=== PATIENT | female | born 1980 | race Caucasian/White ===

== ENCOUNTER 2025-08-05 17:29 | Emergency (ER) | payer OTHER, SELFPAY ==
[2025-08-05 17:36] VITALS: BP 125/93
[2025-08-05 18:05] LABS: Hematocrit 49.7 % (37.0-47.0); Hemoglobin 17.0 g/dL (12.0-16.0); Mean Corp Hgb Conc. 34.2 g/dL (33.0-37.0); Mean Corpuscular Volume 79.5 fL (81.0-99.0); Nucleated Red Blood Cells % 0 %; Platelet Count 251 10^3/uL (130-400); Red Cell Dist. Width 13.5 % (11.5-14.5)
[2025-08-05 18:16] LABS: ALT (SGPT) 32 U/L (0-35); AST (SGOT) 26 U/L (14-36); Albumin 5.4 g/dl (3.5-5.0); Alkaline Phosphatase 82 U/L (38-126); Blood Urea Nitrogen 22 mg/dl (7-17); Calcium 10.3 mg/dl (8.4-10.2); Carbon Dioxide 25 mmol/L (22-30); Chloride 96 mmol/L (98-107); Glucose 115 mg/dl (70-99); Potassium 4.4 mmol/L (3.5-5.1); Sodium 137 mmol/L (135-145); Total Protein 8.6 g/dl (6.3-8.2); eGFR > 60.00
--- NOTE | 2025-08-05 19:52 | ED.GENMED ---
History of Present Illness
General
Chief Complaint: Abdominal Pain
Source: patient
Time Seen by Provider: 08/05/25 19:37
History of Present Illness
History of Present Illness:
44-year-old female with past medical history of type 2 diabetes, recently started on Mounjaro in April, increased her dose of the Mounjaro 2 days ago presenting to the ER for persistent nausea and vomiting since increasing the medication, notes that
she will normally have nausea following an increased dose however it normally subsides after 1 day, now unable to tolerate p.o. She does note some mild generalized abdominal discomfort described to be more of a cramping sensation. She denies any
bowel changes or urinary symptoms. She attempted Zofran at home with no relief. Denies fevers. Last menstrual period at the end of June, she is not concerned for .
Past History
Past History
ED Past Medical History: NIDDM
ED Past Surgical History: , Orthopedic and Other
Social History
Tobacco: Non-smoker
Alcohol: Occasional
Drug: None
Personal:
Living: with family
Review of Systems
Review of Systems
All Other Systems: ROS reviewed and negative except as documented in HPI and ROS
Phy Exam
Physical Exam
Physical Exam:
GENERAL: Alert , in no apparent distress
EYE: clear conjunctiva b/l
HEAD: NCAT
ENT: o/p clr, mmm.
CARDIAC: Tachycardic rate, regular rhythm
LUNGS: Clear breath sounds bilaterally, no acute respiratory distress, no wheezes/rales/rhonchi
ABDOMEN: Soft, generally tender but nonfocal, no r/g, no cvat
NEUROLOGICAL: Alert and oriented
SKIN: Warm and dry, skin intact.
MUSCULOSKELETAL: No edema, well perfused.
PSYCH: Normal and appropriate interaction.
Scores
Heart Failure Risk
Heart Failure Risk Score: Not Applicable
Heart Score for Chest Pain Patients
STEMI patient?: Not applicable
Withdrawal Assessment of Alcohol
Withdrawal Assessment Completed?: Not applicable
Course
Orders/Labs/Results
Orders:
Orders
08/05/25 17:45
CMP [Comprehensive Metabolic Panel] Urgent
Complete Blood Count/With Diff Urgent
HCG, Serum Qualitative Screen Urgent
Comment: ADDON
Lipase Urgent
Comment: ADDON
08/05/25 19:44
Add On- LAB Urgent
Tests Added?: lipase
0.9% Sodium Chloride 1000 ml [Nss] 1,000 ml IV BOLUS
Ondansetron Injectable [Zofran] 4 mg IV NOW STA
CR Abdomen - 1 View Urgent
Comment:
Reason For Exam: nausea/vomiting, recent increased dose GLP-1
08/05/25 19:55
Add On- LAB Urgent
Tests Added?: HCG qual
08/05/25 21:24
0.9% Sodium Chloride 500 ml [Nss] 500 ml IV BOLUS
Ketorolac [Toradol] 30 mg IV NOW STA
Abnormal Lab Results
08/05/25
17:45
WBC 13.1 H 10^3/uL
(4.8-10.8)
RBC 6.25 H 10^6/uL
(4.20-5.40)
Hgb 17.0 H g/dL
(12.0-16.0)
Hct 49.7 H %
(37.0-47.0)
MCV 79.5 L fL
(81.0-99.0)
MPV 10.6 H fL
(7.4-10.4)
Absolute Neuts (auto) 8.2 H 10^3/uL
(1.4-6.5)
Absolute Lymphs (auto) 3.7 H 10^3/uL
(1.2-3.4)
Absolute Monos (auto) 1.0 H 10^3/uL
(0.1-0.6)
Chloride 96 L mmol/L
(98-107)
BUN 22 H mg/dl
(7-17)
Glucose 115 H mg/dl
(70-99)
Calcium 10.3 H mg/dl
(8.4-10.2)
Total Protein 8.6 H g/dl
(6.3-8.2)
Albumin 5.4 H g/dl
(3.5-5.0)
08/05/25 17:45
08/05/25 17:45
Vital Signs
Initial and Last Documented VS:
Initial Vital Signs
Temp Pulse Pulse Ox
98.0 F 120 96
08/05/25 17:33 08/05/25 17:33 08/05/25 17:33
Last Documented Vital Signs
Temp Pulse Resp BP Pulse Ox
98.0 F 94 18 119/80 97
08/05/25 17:33 08/05/25 20:09 08/05/25 20:09 08/05/25 20:09 08/05/25 20:09
MDM/Problems Addressed
Differential Diagnosis Includes:
Medication induced side effect
Pancreatitis
GERD
Gastritis
Cholecystitis
Appendicitis
Dehydration
Electrolyte imbalance
MDM/Problems Addressed:
44-year-old female presenting to the ER for evaluation of persistent nausea and vomiting in the setting of recently increasing her Mounjaro medication. I suspect her symptoms are most likely related to medication side effect but given the mild
discomfort pancreatitis is a consideration. Labs were initiated in triage which do show a leukocytosis, hemoglobin elevated at 17 which is likely due to hemoconcentration from volume depletion. Electrolytes otherwise unremarkable. I did have to
add on a lipase and hCG to the workup. IV fluids, Zofran ordered. Abdominal x-ray ordered to rule out any potential obstruction
*Radiology
Radiology exam reviewed: preliminary read by ED provider (No obstructive bowel gas pattern)
*Pulse Oximetry
SaO2: 96
Oxygen Mode of Delivery: Room air
Patient hypoxic: no
*Critical Care Note
Total Time (30-74mins, 75-104mins- exclusive of procedures): Not Applicable
Patient Management
Escalation/DeEscalation of care consider admission/obs:
On reevaluation patient did note improved nausea and was able to tolerate ice chips however was requesting something now for pain/cramping. 30 mg of Toradol and an additional 1 L of normal saline ordered. Following the Toradol and additional
fluids patient felt much better and was requesting to be discharged home. Advised on BRAT diet. Stable for discharge home.
ED Attending Note
-
Portions of this chart may have been created with voice recognition software.� Occasional wrong word or��sound alike� substitutions may have occurred due to the inherent limitations of voice recognition software.
Discharge Plan
Departure
Patient Disposition: Home (Routine Discharge)
Date of Disposition: 08/05/25
Time of Disposition: 22:52
Patient with high blood pressure during this ER visit?: No
Discharge Problem:
Nausea and vomiting
Instructions: Nausea and Vomiting, Adult (DC)
Prescriptions:
No Action
cephalexin 500 MG capsule
500 mg PO BID Qty: 14 0RF
Referrals:
Belem Seay MD [Family Provider]
Interventions
Interventions:
*Risk Screen - Suicide Last Done: 08/05/25 20:09
*General Assessment Last Done: 08/05/25 17:33
*Neglect/Abuse Screening Last Done: 08/05/25 20:09
*Nursing Disposition Last Done: 08/05/25 23:07
[facility]-Emjfgkzzla Assessment Last Done: 08/05/25 20:09
Discharge Date and Time
Discharge Date/Time: 08/05/25 23:08
Print Language: LITHUANIAN
[2025-08-05] MEDS: ZOFRAN 4 MG IV (20:05)
[2025-08-05] MEDS: NSS 1000 IV (20:05)
[2025-08-05 20:08] VITALS: BMI 27.1
[2025-08-05 20:09] VITALS: BP 119/80
[2025-08-05 21:28] LABS: HCG, Serum Qualitative Screen Negative
[2025-08-05 21:29] LABS: Lipase 75 U/L (23-300)
[2025-08-05] MEDS: TORADOL 30 MG IV (21:41)
[2025-08-05] MEDS: NSS 500 IV (21:42)
== END 2025-08-05 23:08 | disposition home or self-care (01) ==
LOC: EMR 17:29
PROVIDERS: Emergency Medicine; EMERGENCY PHYSICIAN Emergency Medicine; FAMILY PHYSICIAN Family Medicine
DX: R11.2 Nausea with vomiting, unspecified (principal); R10.84 Generalized abdominal pain; E11.9 Type 2 diabetes mellitus without complications
CPT/HCPCS: 99284; 96374; 96375; 96361 ×2; 74018; 80053; 83690; 84703; 85025

== ENCOUNTER 2025-08-07 13:52 | Inpatient (IN) | payer OTHER, SELFPAY ==
[2025-08-07] VITALS (11 sets, daily range): BP systolic 96–137; BP diastolic 62–100; BMI 27.1; BMI 27.4
--- NOTE | 2025-08-07 09:16 | ED.GENMED ---
History of Present Illness
General
Chief Complaint: Abdominal Symptoms
Time Seen by Provider: 08/07/25 09:16
History of Present Illness
History of Present Illness:
FOCUSED PAST MEDICAL HISTORY
- The patient is a diabetic
REVIEW OF OLD RECORDS
- I reviewed records, the patient was seen here with nausea and vomiting 2 days ago chemistries were unremarkable, white count was 13.1 and hemoglobin 17.0, hCG was negative. It is documented the patient has a history of type 2 diabetes and was
started on Mounjaro this past April and increased her dose of Mounjaro 2 days prior to the last ED visit which was 2 days ago. She tried Zofran at home which did not help. Last time she was here she was given fluids and Toradol and Zofran. She was
felt to be dehydrated.
Note:
CHIEF COMPLAINT(S)
Diarrhea, vomiting, and abdominal pain.
HISTORY OF PRESENT ILLNESS
The patient is a 44-year-old female with a history of diabetes, presenting with diarrhea, vomiting, and abdominal pain. She reports that the symptoms started after her second dose of a higher dosage of Mounjaro, a couple of weeks ago, with the last
injection occurring on Tuesday morning. The symptoms began escalating following the injection. The patient reports associated symptoms of headache and dehydration but denies fever or dizziness. She has a history of elevated white blood cell count
and hemoglobin during a previous ER visit, which could be attributed to dehydration. The symptoms have not been experienced by family members, suggesting an unlikely infectious cause. The patient is currently using Mounjaro for diabetes management,
initiated back in April, and has noted previous mild improvement with treatment but not a complete resolution before discharge from the previous visit.
EXTERNAL RECORDS REVIEWED
The patient�s records indicate a previous elevated white blood cell count and hemoglobin level.
CURRENT MEDICATIONS
Mounjaro for diabetes.
REVIEW OF SYSTEMS
- Gastrointestinal: Reports diarrhea and vomiting following the second higher-dose injection of Mounjaro.
- Neurological: Experiences headaches.
- General: Feeling dehydrated and had similar symptoms during prior ER visit.
PHYSICAL EXAM
General: Alert, but appears somewhat uncomfortable
Skin: Warm, dry.
Head: Normocephalic, atraumatic.
Neck: Supple, trachea midline.
Eye, Ears, Nose, Mouth, and Throat: Oral mucosa moist.
Cardiovascular: Normal peripheral perfusion, No edema, tachycardic.
Respiratory: Respirations are non-labored.
Gastrointestinal: Mild diffuse abdominal tenderness
Back: Normal range of motion, Normal alignment.
Musculoskeletal: Normal range of motion, normal strength.
Neurological: Alert and oriented to person, place, time, and situation, No focal neurological deficit observed.
Psychiatric: Cooperative, appropriate mood & affect.
PLAN
- Administer IV fluids.
- Conduct a CT scan to further evaluate the gastrointestinal symptoms.
- Administer Benadryl in conjunction with Reglan to address potential diabetic gastroparesis and prevent side effects of Reglan.
- Administer Toradol as an anti-inflammatory.
- Repeat blood work to check white blood cell count and hemoglobin levels.
DIFFERENTIAL DIAGNOSIS
The Differential Diagnosis includes, in no particular order and is not limited to:
1. Drug-induced gastrointestinal side effects (Mounjaro).
2. Infectious gastroenteritis.
3. Diabetic gastroparesis.
4. Viral gastroenteritis.
5. Bacterial gastroenteritis.
6. Pancreatitis.
7. Appendicitis.
8. Small bowel obstruction.
9. Gastric ulcer.
10. Inflammatory bowel disease (IBD).
RADIOLOGY
- CT abdomen pelvis obtained which shows no acute abnormality, large gallstone noted; appearance of gastroenteritis also noted
LABS
- White count 12.6, hemoglobin 15.7 (slight improvement compared to prior), chemistries and hCG unremarkable
UPDATE
-08/07/25 - 10:14
The patients white blood cell count is improving and trending in the right direction. Hemoglobin levels have decreased, likely due to previous dehydration, and fluids are being administered. The patient reports feeling the same after receiving
medication 20 minutes ago and does not currently require narcotics for pain management. Although the patient is experiencing some nausea, the severity is unspecified, and alternative antiemetics like Zofran or Phenergan. Further studies are pending
to assess the situation better.
The patient was given Reglan initially with Benadryl, then Phenergan and then an 8 mg dose of IV Zofran
SUMMARY OF ENCOUNTER
The patient, a 44-year-old female with a history of diabetes, presented to the emergency department with complaints of diarrhea, vomiting, and abdominal pain following a recent dose increase of tirzepatide (Mounjaro). The symptoms started after her
second higher-dose injection of tirzepatide, with associated dehydration and headaches. The patient was given IV fluids for hydration and various antiemetics including metoclopramide (Reglan) and prochlorperazine (Compazine). A CT scan was performed
and indicated features suggestive of gastroenteritis, without any major abnormalities. The CT findings could be consistent with a viral or food-related gastroenteritis, or possibly drug-induced gastrointestinal side effects due to tirzepatide use.
The patient expressed a desire to be discharged, although she acknowledges previous attempts resulted in significant vomiting at home.
ASSESSMENT
The patient has gastrointestinal symptoms possibly due to drug-induced side effects from tirzepatide, or infectious or viral gastroenteritis. The CT scan shows findings consistent with gastroenteritis, and current management focuses on symptom
control and hydration.
EMERGENCY TREATMENTS ADMINISTERED
- IV fluids for dehydration.
- Metoclopramide (Reglan) administered for nausea.
- Prochlorperazine (Compazine) administered for additional antiemetic support.
- Ondansetron (Zofran) IV administered again for further antiemetic relief.
PLAN
- Continue IV hydration to address dehydration.
- Provide symptomatic treatment with antiemetics.
- Monitor symptom improvement and readiness for discharge.
- If symptoms persist and do not improve, consider admission for further observation and management.
INDEPENDENT REVIEW OF LABS AND INTERPRETATION OF TESTS
My independent CT scan interpretation indicates findings suggestive of gastroenteritis, without major abnormalities.
MEDICATION RECONCILIATION
- Ondansetron (Zofran) IV administered.
- Metoclopramide (Reglan) administered.
- Prochlorperazine (Compazine) administered.
- Continue current medicines for diabetes management as per the patients regimen.
MEDICAL DECISION MAKING
- Complexity of Data Reviewed: Chronic conditions affecting care [diabetes] Differential Diagnosis includes drug-induced gastrointestinal side effects (tirzepatide), infectious gastroenteritis, diabetic gastroparesis, viral gastroenteritis,
bacterial gastroenteritis, pancreatitis, appendicitis, small bowel obstruction, gastric ulcer, inflammatory bowel disease (IBD).
- Data:
Category 1:
My independent CT scan interpretation found no major abnormalities but showed findings suggestive of gastroenteritis.
Category 2:
Reviewed previous elevated white blood cell count and hemoglobin levels from external records.
-Risk:
Prescription medication was prescribed. Ondansetron was administered for symptomatic relief.
Discussion with Dr. Herrera: CHAGO GARCIA, 44F, ROOM [address]. Ongoing N/V, diffuse abd pain, and some diarrhea. Seen here 2d ago (2d after took Mounjaro - dose was increased 2+ weeks ago). At that time, WBC 13.1 and hgb 17.0 - felt to be dehydrated and
was d/c'd from ED. Now w/ ongoing symptoms, cannot tolerate po. Tried zofran at home. We tried Reglan/Benadryl, compazine, 8mg Zofran; still unwell feeling. Very pleasant, but not feeling any better. Feels if we discharge her, she still cannot
tolerate po and likely would need to come back. CT suggests gastroenteritis and she incidentally has a large gallstone. Today, WBC 12.6, hgb 15.7, normal bicarb/Cr, not .
Added Dilaudid as she still remains to feel uncomfortable
DIAGNOSIS
- Possible Drug-induced Gastrointestinal Side Effects from Tirzepatide [T50.995A].
- Gastroenteritis, Unspecified [A09].
Past History
Past History
ED Past Medical History: NIDDM
ED Past Surgical History: , Orthopedic and Other
Social History
Tobacco: Non-smoker
Alcohol: Occasional
Drug: None
Personal:
Living: with family
Phy Exam
Physical Exam
Physical Exam:
See HPI
Course
Orders/Labs/Results
Orders:
Orders
08/07/25 09:28
0.9% Sodium Chloride 1000 ml [Nss] 1,000 ml IV BOLUS
Diphenhydramine [Benadryl] 25 mg IV NOW STA
Ketorolac [Toradol] 15 mg IV NOW STA
Metoclopramide [Reglan] 10 mg IV NOW STA
Test Result ONCE
08/07/25 09:30
CT Abd/pelvis W Iv Cont Urgent
Comment:
Reason For Exam: diffuse abd pain, recurrent vomiting; some diarrhe
08/07/25 09:38
Complete Blood Count/With Diff Urgent
Comprehensive Metabolic Panel Urgent
HCG, Serum Qualitative Screen Urgent
Lipase Urgent
08/07/25 10:20
Prochlorperazine [Compazine] 10 mg IV NOW STA
08/07/25 11:25
Ondansetron Injectable [Zofran] 8 mg IV NOW STA
08/07/25 11:52
HYDROmorphone [Dilaudid] 1 mg IV NOW STA
Abnormal Lab Results
08/07/25
09:38
WBC 12.6 H 10^3/uL
(4.8-10.8)
RBC 5.77 H 10^6/uL
(4.20-5.40)
MCV 78.9 L fL
(81.0-99.0)
MPV 11.2 H fL
(7.4-10.4)
Absolute Neuts (auto) 9.4 H 10^3/uL
(1.4-6.5)
Absolute Monos (auto) 0.8 H 10^3/uL
(0.1-0.6)
Lymphocytes % 16.7 L %
(20.5-51.1)
Carbon Dioxide 18 L mmol/L
(22-30)
08/07/25 09:38
08/07/25 09:38
Vital Signs
Initial and Last Documented VS:
Initial Vital Signs
Temp Pulse Resp BP Pulse Ox
36.8 C 117 20 133/97 99
08/07/25 08:49 08/07/25 08:49 08/07/25 08:49 08/07/25 08:49 08/07/25 08:49
Last Documented Vital Signs
Temp Pulse Resp BP Pulse Ox
36.8 C 117 20 124/89 98
08/07/25 08:49 08/07/25 08:49 08/07/25 08:49 08/07/25 12:02 08/07/25 12:15
*Pulse Oximetry
SaO2: 99
Oxygen Mode of Delivery: Room air
Patient hypoxic: no
*Critical Care Note
Total Time (30-74mins, 75-104mins- exclusive of procedures): Not Applicable
ED Attending Note
-
Portions of this chart may have been created with voice recognition software.� Occasional wrong word or��sound alike� substitutions may have occurred due to the inherent limitations of voice recognition software.
Discharge Plan
Departure
Patient Disposition: Admit
Date of Disposition: 08/07/25
Time of Disposition: 11:56
Presentation/result/management discussed w/ accepting MD/DO: Hospitalist
Patient with high blood pressure during this ER visit?: Yes
Discharge Problem:
Intractable nausea
Prescriptions:
No Action
sertraline 100 mg Tablet
100 mg PO DAILY
lamotrigine 300 mg Tablet Extended Release 24hr
300 mg PO DAILY
Jardiance 10 mg Tablet
10 mg PO DAILY
Vraylar 6 mg Capsule
6 mg PO DAILY
Mounjaro 7.5 mg/0.5 mL Pen Injector
7.5 mg SC SA
Referrals:
Belem Seay MD [Family Provider]
Interventions
Interventions:
*Risk Screen - Suicide Last Done: 08/07/25 10:00
*General Assessment Last Done: 08/07/25 10:00
*Neglect/Abuse Screening Last Done: 08/07/25 10:00
*ED- Fall Risk Assessment Last Done: 08/07/25 11:36
*ED COVID-19 Vaccine History Last Done: 08/07/25 11:36
ZL-Bpsppb-Huyregznnp Assessment Last Done: 08/07/25 10:00
Discharge Date and Time
Print Language: PERSIAN
[2025-08-07] MEDS: TORADOL 15 MG IV (09:45)
[2025-08-07] MEDS: BENADRYL 25 MG IV (09:45)
[2025-08-07] MEDS: REGLAN 10 MG IV (09:45)
[2025-08-07] MEDS: NSS 1000 IV (09:46)
[2025-08-07 09:58] LABS: Hematocrit 45.5 % (37.0-47.0); Hemoglobin 15.7 g/dL (12.0-16.0); Mean Corp Hgb Conc. 34.5 g/dL (33.0-37.0); Mean Corpuscular Volume 78.9 fL (81.0-99.0); Nucleated Red Blood Cells % 0 %; Platelet Count 192 10^3/uL (130-400); Red Cell Dist. Width 13.6 % (11.5-14.5)
[2025-08-07 10:08] LABS: HCG, Serum Qualitative Screen Negative
[2025-08-07 10:24] LABS: ALT (SGPT) 23 U/L (0-35); AST (SGOT) 18 U/L (14-36); Albumin 4.8 g/dl (3.5-5.0); Alkaline Phosphatase 69 U/L (38-126); Blood Urea Nitrogen 14 mg/dl (7-17); Calcium 9.6 mg/dl (8.4-10.2); Carbon Dioxide 18 mmol/L (22-30); Chloride 103 mmol/L (98-107); Glucose 98 mg/dl (70-99); Lipase 49 U/L (23-300); Potassium 4.0 mmol/L (3.5-5.1); Sodium 137 mmol/L (135-145); Total Protein 7.2 g/dl (6.3-8.2); eGFR > 60.00
[2025-08-07] MEDS: COMPAZINE 10 MG IV ×2 (11:07→17:18)
[2025-08-07] MEDS: ZOFRAN 8 MG IV (11:33)
[2025-08-07] MEDS: DILAUDID 1 MG IV ×3 (12:00→17:18)
--- NOTE | 2025-08-07 12:56 | ED.GENMED ---
History of Present Illness
General
Chief Complaint: Abdominal Symptoms
Time Seen by Provider: 08/07/25 09:16
Past History
Past History
ED Past Medical History: NIDDM
ED Past Surgical History: , Orthopedic and Other
Social History
Tobacco: Non-smoker
Alcohol: Occasional
Drug: None
Personal:
Living: with family
Course
Orders/Labs/Results
Orders:
Orders
08/07/25 09:28
0.9% Sodium Chloride 1000 ml [Nss] 1,000 ml IV BOLUS
Diphenhydramine [Benadryl] 25 mg IV NOW STA
Ketorolac [Toradol] 15 mg IV NOW STA
Metoclopramide [Reglan] 10 mg IV NOW STA
Test Result ONCE
08/07/25 09:30
CT Abd/pelvis W Iv Cont Urgent
Comment:
Reason For Exam: diffuse abd pain, recurrent vomiting; some diarrhe
08/07/25 09:38
Complete Blood Count/With Diff Urgent
Comprehensive Metabolic Panel Urgent
HCG, Serum Qualitative Screen Urgent
Lipase Urgent
08/07/25 10:20
Prochlorperazine [Compazine] 10 mg IV NOW STA
08/07/25 11:25
Ondansetron Injectable [Zofran] 8 mg IV NOW STA
08/07/25 11:52
HYDROmorphone [Dilaudid] 1 mg IV NOW STA
08/07/25 12:41
B-Hydroxybutyrate Urgent
Abnormal Lab Results
08/07/25
09:38
WBC 12.6 H 10^3/uL
(4.8-10.8)
RBC 5.77 H 10^6/uL
(4.20-5.40)
MCV 78.9 L fL
(81.0-99.0)
MPV 11.2 H fL
(7.4-10.4)
Absolute Neuts (auto) 9.4 H 10^3/uL
(1.4-6.5)
Absolute Monos (auto) 0.8 H 10^3/uL
(0.1-0.6)
Lymphocytes % 16.7 L %
(20.5-51.1)
Carbon Dioxide 18 L mmol/L
(22-30)
08/07/25 09:38
08/07/25 09:38
Vital Signs
Initial and Last Documented VS:
Initial Vital Signs
Temp Pulse Resp BP Pulse Ox
36.8 C 117 20 133/97 99
08/07/25 08:49 08/07/25 08:49 08/07/25 08:49 08/07/25 08:49 08/07/25 08:49
Last Documented Vital Signs
Temp Pulse Resp BP Pulse Ox
36.8 C 117 20 124/89 99
08/07/25 08:49 08/07/25 08:49 08/07/25 08:49 08/07/25 12:02 08/07/25 12:30
*Pulse Oximetry
SaO2: 99
Oxygen Mode of Delivery: Room air
ED Attending Note
-
Portions of this chart may have been created with voice recognition software.� Occasional wrong word or��sound alike� substitutions may have occurred due to the inherent limitations of voice recognition software.
Discharge Plan
Departure
Patient Disposition: Admit
Date of Disposition: 08/07/25
Time of Disposition: 11:56
Presentation/result/management discussed w/ accepting MD/DO: Hospitalist
Patient with high blood pressure during this ER visit?: Yes
Discharge Problem:
Intractable nausea
Prescriptions:
No Action
sertraline 100 mg Tablet
100 mg PO DAILY
lamotrigine 300 mg Tablet Extended Release 24hr
300 mg PO DAILY
Jardiance 10 mg Tablet
10 mg PO DAILY
Vraylar 6 mg Capsule
6 mg PO DAILY
Mounjaro 7.5 mg/0.5 mL Pen Injector
7.5 mg SC SA
Referrals:
Belem Seay MD [Family Provider]
Interventions
Interventions:
*Risk Screen - Suicide Last Done: 08/07/25 10:00
*General Assessment Last Done: 08/07/25 10:00
*Neglect/Abuse Screening Last Done: 08/07/25 10:00
*ED- Fall Risk Assessment Last Done: 08/07/25 11:36
*ED COVID-19 Vaccine History Last Done: 08/07/25 11:36
AO-Rknkuv-Jigmzkjcpx Assessment Last Done: 08/07/25 10:00
Discharge Date and Time
Print Language: CITIZ[place]
[2025-08-07] MEDS: ZOFRAN 4 MG IV ×2 (13:18→16:13)
--- NOTE | 2025-08-07 13:25 | HPS.HSE ---
Family Physician
-
Family Physician: Belem Seay MD
Chief Complaint
-
Persistent nausea and vomiting
History of Present Illness
Patient is a 44 years old female with fairly recent diagnosis of diabetes when she presented with fatigue, weight loss and found to have hemoglobin A1c of 12. Patient was initiated on diabetic regimen including Mounjaro and Jardiance. Her recent
dose of Mounjaro was increased to 7.5 mg weekly. She developed nausea, diffuse mostly epigastric abdominal pain, persistent emesis and had to visit emergency room 2 days prior to this admission. At that time she was found relatively stable and was
discharged home with attempt of symptomatic management. She returns today with persistent nausea and vomiting, epigastric abdominal pain, and no oral intake for about 4 days.
Medical History
Past Medical History
Past Medical History: Reports NIDDM and Psychiatric (Bipolar)
Past Surgical History: Reports None
Social History
Tobacco: Non-smoker
Alcohol: None
Drug: None
Personal:
Living: With Family
Family History
Family History: Diabetes
Allergies / Home Medications
Allergies reflects when Allergies were last updated in [facility].
Home Medications with original date entered in [facility]
Allergy/Medication List:
Allergies
Allergy/AdvReac Type Severity Reaction Status Date / Time
No Known Allergies Allergy Unverified 08/05/25 17:32
Home Medications
cariprazine 6 mg capsule (Vraylar) 6 mg PO DAILY 08/07/25
empagliflozin 10 mg tablet (Jardiance) 10 mg PO DAILY 08/07/25
lamotrigine 300 mg tablet,extended release 24 hr 300 mg PO DAILY 08/07/25
sertraline 100 mg tablet 100 mg PO DAILY 08/07/25
tirzepatide 7.5 mg/0.5 mL subcutaneous pen injector (Mounjaro) 7.5 mg SC SA 08/07/25
Review of Systems
-
A 12 point ROS was completed and negative except as noted: Yes
Abdomen/GI: Reports See HPI
Physical Exam
Vital Signs
Vital Signs
Temp Pulse Resp BP Pulse Ox
98.2 F 117 20 124/89 99
08/07/25 08:49 08/07/25 08:49 08/07/25 08:49 08/07/25 12:02 08/07/25 12:30
Physical Exam
General: Well Developed, Well Nourished and No Apparent Distress
HEENT: NormoCephalic, Moist mucous membranes and Atraumatic
Respiratory: Clear
Cardiac: S1/S2 and Regular Rhythm; No Murmur or Rub
GI: Soft, Non Distended, Normal Bowel Sounds and Other (Mild epigastric tenderness without rebound); No Organomegaly
Rectal: Deferred by Provider
Musculoskeletal: No Clubbing, No Cyanosis and No Edema
Skin: No Rash
Neuro: Nonfocal/grossly intact
Laboratory Results
-
08/07/25 09:38
08/07/25 09:38
Laboratory Results
Total Bilirubin 0.8 mg/dl (0.2-1.3) 08/07/25 09:38
AST 18 U/L (14-36) 08/07/25 09:38
ALT 23 U/L (0-35) 08/07/25 09:38
Alkaline Phosphatase 69 U/L (38-126) 08/07/25 09:38
Lipase 49 U/L (23-300) 08/07/25 09:38
Impression/Plan
-
IMPRESSION:
Persistent nausea, emesis with low oral intake.
Increased anion gap metabolic acidosis.
Leukocytosis
Diabetes
Bipolar disorder
PLAN:
Persistent nausea and vomiting with low oral intake leading to dehydration and electrolyte disturbances.
Exam with relatively benign abdomen
CT scan of the abdomen pelvis with IV contrast only findings relevant for possible small and large bowel thickening suggestive of possible gastroenteritis with no evidence of obstruction
Large gallstone size of 2.7 cm
Differential diagnosis likely persistent emesis secondary to effect of GLP-1 agonist likely in conjunction of multiple psychotropic medications with anticholinergic effect..
Patient did not respond to symptomatic treatment with multiple doses of antiemetics and IV opioids while in the emergency room.
Normal lipase and liver function
Admit to telemetry.
Start IV hydration
Continue antiemetics: Zofran/Compazine.
Continue analgesic regimen with IV Tylenol and hydromorphone for severe breakthrough pain.
Allow full liquid diet.
IV PPI
Monitor ECG for QTc prolongation while on multiple psychotropic medications and Zofran.
Noted large gallstone with normal liver function tests. She does have a leukocytosis which is decreasing from 14-12 since prior visit to ED 2 days ago. Follow LFTs. Repeat lipase. Check abdominal ultrasound to take a closer look for gallbladder.
Increased anion gap metabolic acidosis
Possibly in the settings of SGLT2 inhibitor.
Suspect there is a second disorder with normal anion gap acidosis due to GI losses with persistent emesis and diarrhea
Check serum acetone
Hold Jardiance
Continue IV hydration
Follow BMP
Type 2 diabetes.
Fairly recent diagnosis.
Patient reports hemoglobin A1c as high as 09 May 2025.
Initiated on Mounjaro with escalating dose and Jardiance started in April 2025.
Update hemoglobin A1c.
Basal bolus protocol with serial Accu-Cheks
Bipolar disorder.
Will continue Vraylar, Lamictal, sertraline monitor QTc while patient is on antiemetics
Full code
DVT prophylaxis: Lovenox
--- NOTE | 2025-08-07 13:59 | CM ---
CM reviewed chart and met with pt bedside in ED. Lives with her , 2 children and 2 dogs in 2 story home.
Independent in ADLs, personal care and ambulation at baseline. No DME.
Confirms prescription coverage.
PCP: Belem Seay
Pharmacy: [facility]
Anticipate discharge home, CM will continue to follow for any discharge planning needs.
[2025-08-07 15:27] LABS: Glucose - Point of Care 102 mg/dl (70-99)
--- NOTE | 2025-08-07 15:40 | PN.DE.MGMTRT ---
Insulin Management
- -
08/07/2025: Diabetes Management Consult
44 years old female with PMH: Bipolar and fairly recent dx of T2DM in April 2025. Pt states she was initially dx with pre-diabetes and was managed with Metformin but it was stopped due to excessive diarrhea.
Pt started experiencing sx of excessive thirst, frequent urination, fatigue and 20lbs weight loss in early April that prompted a visit to her PCP and was noted for A1C of ~12% and fasting blood glucose of 460's. At that time, She was started on
Mounjaro and Jardiance 10mg daily but was never told to test her blood sugars at home and does not have a glucose monitor. Her Mounjaro dose was recently titrated up from 5 mg to 7.5mg 2 weeks ago. Since starting the 7.5mg, Pt has experienced off
and on GI side effects including nausea, vomiting, epigastric pain and abdominal cramping.
She developed persistent nausea and vomiting 2 days ago that led to an ED visit but was discharged home after sx mgt. Pt returned today due to ongoing nausea and vomiting, epigastric abdominal pain, and unable to tolerate oral intake for about 4
days.
Her glucose on admission was 98 V and POC blood sugar at 3:25pm was 102. A1C pending, Cr 0.7, eGFR >60.
Will start low corrective insulin. HOLD Jardiance. No indication for basal bolus Insulin at this time but will closely monitor glucose trend and start insulin if necessary. Pt was instructed to hold Mounjaro until follow up with PCP.
Discussed with Nurse. Will cont to monitor.
Diabetes History
- -
Type of Diabetes: 2
Pre-Admission Diabetes Regimen
08/07/25
09:38
Creatinine 0.7
Insulin Pump Settings
IP Diabetes Regimen
08/07/25 08/07/25
09:38 15:25
Glucose 98
POC Glucose 102 H
Patient Education
[2025-08-07] MEDS: ZOLOFT 100 MG PO (16:08)
[2025-08-07] MEDS: LOVENOX 40 MG SC (16:08)
[2025-08-07] MEDS: PROTONIX IV 40 MG IV (16:08)
[2025-08-07] MEDS: NSS (PRESERVATIVE FREE) 10 ML IV (16:08)
[2025-08-07] MEDS: LR 1000 IV (16:09)
[2025-08-07 16:38] LABS: Glucose - Point of Care 108 mg/dl (70-99)
[2025-08-07 21:07] LABS: Glucose - Point of Care 94 mg/dl (70-99)
[2025-08-08] MEDS: COMPAZINE 10 MG IV ×2 (01:01→20:02)
[2025-08-08] MEDS: LR 1000 IV ×3 (01:01→18:04)
[2025-08-08 03:08] VITALS: BP 93/55
[2025-08-08 07:00] VITALS: BP 100/68
[2025-08-08 07:14] LABS: Hematocrit 38.6 % (37.0-47.0); Hemoglobin 13.2 g/dL (12.0-16.0); Mean Corp Hgb Conc. 34.2 g/dL (33.0-37.0); Mean Corpuscular Volume 80.1 fL (81.0-99.0); Nucleated Red Blood Cells % 0 %; Platelet Count 185 10^3/uL (130-400); Red Cell Dist. Width 13.7 % (11.5-14.5)
--- NOTE | 2025-08-08 07:16 | PN.DE.MGMTRT ---
Insulin Management
- -
08/08/2025: Diabetes Management Consult Follow up
Patient admitted 08/07 with persistent N & V for 4 days, unable to keep anything down. PMH: Bipolar and fairly recent dx of T2DM in April 2025.
Pt started experiencing sx of excessive thirst, frequent urination, fatigue and 20lbs weight loss in early April that prompted a visit to her PCP and was noted for A1C of ~12% and fasting blood glucose of 460's. At that time, She was started on
Mounjaro and Jardiance 10mg daily but was never told to test her blood sugars at home and does not have a glucose monitor. Her Mounjaro dose was recently titrated up from 5 mg to 7.5mg 2 weeks ago. Since starting the 7.5mg, Pt has experienced off
and on GI side effects including nausea, vomiting, epigastric pain and abdominal cramping.
She developed persistent nausea and vomiting 2 days ago that led to an ED visit but was discharged home after sx mgt.
Her glucose on admission was 98 V and POC blood sugar at 3:25pm was 102. A1C pending, Cr 0.7, eGFR >60.
Patient glucose yesterday 94 to 108, required no low corrective insulin. Will resume Farxiga 10 mg daily (home med Jardiance). Diet is advanced to 2000 calorie.
Discussed with patient Mounjaro may have been major contributor to N&V. Advised not to resume at discharge.
Diabetes Nurse Educator has provided contour glucose meter and instructed. Accuchek meter preferred, prescriptions for meter, strips and lancets placed in ambulatory orders.
Discussed with Nurse. Will cont to monitor.
Diabetes History
- -
Type of Diabetes: 2
Pre-Admission Diabetes Regimen
08/07/25
Creatinine 0.7
Insulin Pump Settings
IP Diabetes Regimen
08/07/25 08/07/25 08/07/25
: 15:25 16:36
Glucose 98
POC Glucose 102 H 108 H
08/07/25
21:01
Glucose
POC Glucose 94
Patient Education
[2025-08-08 07:45] LABS: Glycohemoglobin (HgbA1c) 6.9 % (4.0-5.6)
[2025-08-08 07:48] LABS: ALT (SGPT) 17 U/L (0-35); AST (SGOT) 16 U/L (14-36); Albumin 3.6 g/dl (3.5-5.0); Alkaline Phosphatase 56 U/L (38-126); Blood Urea Nitrogen 10 mg/dl (7-17); Calcium 8.7 mg/dl (8.4-10.2); Carbon Dioxide 23 mmol/L (22-30); Chloride 104 mmol/L (98-107); Estimated Creatinine Clearance 79 ml/min; Glucose 82 mg/dl (70-99); Lipase 57 U/L (23-300); Potassium 4.3 mmol/L (3.5-5.1); Sodium 137 mmol/L (135-145); Total Protein 5.6 g/dl (6.3-8.2); eGFR > 60.00
[2025-08-08 08:16] LABS: Glucose - Point of Care 90 mg/dl (70-99)
[2025-08-08] MEDS: ZOLOFT 100 MG PO (08:33)
[2025-08-08] MEDS: NSS (PRESERVATIVE FREE) 10 ML IV (08:33)
[2025-08-08] MEDS: PROTONIX IV 40 MG IV (08:33)
[2025-08-08 11:00] VITALS: BP 96/64
[2025-08-08 11:48] LABS: Glucose - Point of Care 87 mg/dl (70-99)
--- NOTE | 2025-08-08 12:00 | PTCARENOTE ---
08/08/2025 DIABETES EDUCATION CONSULT
I met with patient to review diabetes management. She was newly diagnosed with Type 2 DM in December, was prescribed Jardiance and Mounjaro. At previous increase in Mounjaro dose she experienced some nausea but it dissipated. 2 weeks ago her
dose increased to 7.5 mg and she is now inpatient due to nausea, vomiting, and abdominal pain. She has an appointment with her PCP Belem Seay on Tuesday. She was not encouraged to check glucose levels after diagnosis.
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 I provided patient with a [employer] glucometer sample kit. Discussed long and short acting insulin; onset/peak/duration, and encouraged her to administer
his own injections with RN supervision while admitted. Discussed normal target glucose ranges and a monitoring schedule 15 minutes before each meal when prescribed Novolog, and preprandial AM.
I reinforced BS parameters and recommended HbA1c goals, glucometer and CGM instructions, glucose tracker, medic alert bracelet and outpatient DSME program. Written material provided.
Encouraged patient to follow up with her PCP for post d/c appointment and to monitor medication and blood glucose levels. Provided list of endocrinologists if desired, to contact insurance company to verify in network status. Requested a
prescription for blood sugar testing supplies to be sent to his pharmacy on record. Patient verbalized understanding.
[2025-08-08] MEDS: FARXIGA 10 MG PO (14:35)
[2025-08-08] MEDS: DILAUDID 1 MG IV ×2 (14:40→21:59)
[2025-08-08 15:00] VITALS: BP 112/75
[2025-08-08 15:12] VITALS: BMI 27.4
--- NOTE | 2025-08-08 15:47 | W.PN.HOSP.TC ---
Today's Communication/Plan
-
Advance diet and monitor for recurrent symptoms
Hide in AM.
Surgery consult
Assessment / Plan
Assessment / Plan
IMPRESSION:
Persistent nausea, emesis with low oral intake.
Increased anion gap metabolic acidosis.
Leukocytosis
Diabetes
Bipolar disorder
PLAN:
Persistent nausea and vomiting with low oral intake leading to dehydration and electrolyte disturbances.
Exam with relatively benign abdomen
CT scan of the abdomen pelvis with IV contrast only findings relevant for possible small and large bowel thickening suggestive of possible gastroenteritis with no evidence of obstruction
Large gallstone size of 2.7 cm
Differential diagnosis likely persistent emesis secondary to effect of GLP-1 agonist likely in conjunction of multiple psychotropic medications with anticholinergic effect..
Patient did not respond to symptomatic treatment with multiple doses of antiemetics and IV opioids while in the emergency room.
Normal lipase and liver function
Increased anion gap metabolic acidosis likely secondary to starvation ketoacidosis and less likely related to SGLT2 inhibitor. Improved with IV hydration
Overall improved and tolerates clear liquid diet.
Cholelithiasis. Possibly contributing to presentation
Afebrile with normal white count.
Normal LFTs.
Exam with very mild right upper quadrant tenderness.
technical support engineer we will call with slightly thickened gallbladder wall.
Consult surgery to comment.
HIDA scan pending contrast delivery tentatively on 08/09.
Will challenge with oral intake in the meantime
Type 2 diabetes.
Fairly recent diagnosis.
Repeated hemoglobin A1c 6.8 with significant drop from 12
Will resume SGLT2 inhibitor as diet will be advanced
Hold GLP-1 agonist
Outpatient follow-up blood glucose trend for DM regimen adjustment
Bipolar disorder.
Will continue Vraylar, Lamictal, sertraline monitor QTc while patient is on antiemetics
Full code
DVT prophylaxis: Lovenox
Anticipated Discharge: 24 - 48 hours
Subjective/Interval History
-
Date of Service: August 08, 2025
Objective Data
-
Labs:
Laboratory Results
08/08/25
06:02
WBC 7.4
Hgb 13.2
Hct 38.6
Plt Count 185
Sodium 137
Potassium 4.3
Chloride 104
Carbon Dioxide 23
BUN 10
Creatinine 0.9
Glucose 82
Calcium 8.7
Total Bilirubin 0.8
AST 16
ALT 17
Alkaline Phosphatase 56
Vital Signs:
Vital Signs
Temp Pulse Resp BP Pulse Ox
98.4 F 90 19 112/75 96
08/08/25 15:00 08/08/25 15:00 08/08/25 15:00 08/08/25 15:00 08/08/25 15:00
Physical Exam
-
General: Well Developed and No Apparent Distress
HEENT: Normocephalic, Atraumatic and Moist Mucous Membranes
Respiratory: Clear to Auscultation
Cardiac: Regular Rhythm and S1/S2; Negative Murmur, Rub or Gallop
GI: Soft, Nontender, Nondistended and Normal Bowel Sounds; Negative Organomegaly
Rectal: Deferred by Provider
Musculoskeletal: No Clubbing, No Cyanosis and No Edema
Skin: Negative Rash
Neuro: Nonfocal/Grossly Intact
--- NOTE | 2025-08-08 16:01 | CM ---
NPO for further GI procedure tomorrow.
DM educator saw patient.
Adjusting medicines.
CM will continue to assess and assist with dc planning
PLAN Home no anticipating
[2025-08-08 17:06] LABS: Glucose - Point of Care 86 mg/dl (70-99)
[2025-08-08 19:30] VITALS: BP 111/74
[2025-08-08] MEDS: TYLENOL 1000 MG PO (20:08)
[2025-08-08 21:50] LABS: Glucose - Point of Care 86 mg/dl (70-99)
[2025-08-08 23:25] VITALS: BP 103/61
[2025-08-09 03:25] VITALS: BP 133/82
[2025-08-09 06:20] LABS: Glucose - Point of Care 82 mg/dl (70-99)
[2025-08-09 07:00] VITALS: BP 121/82
--- NOTE | 2025-08-09 07:52 | PN.DE.MGMTRT ---
Insulin Management
- -
08/09/2025: Diabetes Management Follow up
Patient admitted 08/07 with persistent N & V for 4 days, unable to keep anything down. PMH: Bipolar and fairly recent dx of T2DM in April 2025.
Pt started experiencing sx of excessive thirst, frequent urination, fatigue and 20lbs weight loss in early April that prompted a visit to her PCP and was noted for A1C of ~12% and fasting blood glucose of 460's. At that time, She was started on
Mounjaro and Jardiance 10mg daily but was never told to test her blood sugars at home and does not have a glucose monitor. Her Mounjaro dose was recently titrated up from 5 mg to 7.5mg 2 weeks ago. Since starting the 7.5mg, Pt has experienced off
and on GI side effects including nausea, vomiting, epigastric pain and abdominal cramping.
She developed persistent nausea and vomiting 2 days ago that led to an ED visit but was discharged home after sx mgt.
Her glucose on admission was 98 V and POC blood sugar at 3:25pm was 102. A1C pending, Cr 0.7, eGFR >60.
Patient awake, alert, oriented, sitting up in bed, offers no complaints, able to discuss diabetes care plan. at bedside
Farxiga 10 mg daily (home med Jardiance) was resumed yesterday. Diet was advanced to 2000 calorie.
Glucose yesterday was 86 to 90, required no low corrective insulin. Will make no changes to current regimen.
Discussed with patient Mounjaro may have been major contributor to N&V. Advised not to resume at discharge.
Diabetes Nurse Educator has provided contour glucose meter and instructed. Accuchek meter preferred, prescriptions for meter, strips and lancets placed in ambulatory orders.
Discussed with Nurse. Will cont to monitor.
Diabetes History
- -
Type of Diabetes: 2
Pre-Admission Diabetes Regimen
Lab Results
Hemoglobin A1c 6.9 % (4.0-5.6) H 08/08/25 06:02
Insulin Pump Settings
IP Diabetes Regimen
08/08/25 08/08/25 08/08/25
08:15 11:47 17:05
POC Glucose 90 87 86
08/08/25 08/09/25
21:49 06:19
POC Glucose 86 82
Meal type: Lunch
Meal type: Breakfast
Amount consumed: 20%
Amount consumed: 60%
Patient Education
[2025-08-09] MEDS: NSS (PRESERVATIVE FREE) 10 ML IV (08:36)
[2025-08-09] MEDS: PROTONIX IV 40 MG IV (08:36)
--- NOTE | 2025-08-09 10:32 | PN.CDI ---
CDI
- -
CDI:
Physician Documentation Request
Admit Date: 08/07/25 13:52
Dear Doctor,
Patient admitted for nausea and vomiting.
Laboratory Tests
08/07/25
09:38
WBC 12.6 H
08/07/25
08:49 08/07/25
15:36 08/07/25
19:00
Pulse 117 106 102
Please clarify which most accurately describes the patient:
SIRS due to a non-infectious source
Systemic manifestations of infection, with 2 or more SIRS criteria which include:
Fever > 100.4 degrees F or hypothermia < 96.8 degrees F
Leukocytosis - WBC > 12,000 or leukopenia, WBC < 4,000 or > 10% bands
Tachycardia - > 90 beats per minute
Tachypnea - RR > 20 breaths per minute or PaCO2 < 32 mmHg
Source: Merck Manual 2013
Indicate the known or suspected etiology
Indicate if there is associated organ dysfunction, such as renal or respiratory failure
No systemic manifestations
Other
Unable to determine
Use of terms such as suspected, likely, concern for, or probable (associated with a specific diagnosis that is being evaluated, monitored, or treated as if it exists) are acceptable and can be coded in the inpatient setting, when documented at the
time of discharge.
Thank you,
Mimi Larios RN, BSN
CDI Specialist
Available via [facility] text
Please use your independent medical judgment in providing your response.
[2025-08-09] MEDS: COMPAZINE 10 MG IV (10:43)
--- NOTE | 2025-08-09 10:53 | CON.GS ---
Addendum entered and electronically signed by Daniel Juárez MD 08/09/25 11:42:
Patient seen and examined.
Patient is a 44 yo F with a PMH of obesity, bipolar disorder, NIDDM, s/p , and s/p abdominoplasty who presented with several days of nausea, vomiting, and abdominal discomfort. Ms. Waite states that her symptoms began this past Tuesday
after a increase in her Mounjaro dosing. She reports more diffuse abdominal discomfort and bloating as well as associated nausea and vomiting. Symptoms worsen with oral intake. No fevers or chills. She denies any jaundice or pale stools. She
does report darker urine. She denies any prior episodes or symptoms in the past. She denies any prior knowledge of her cholelithiasis. Family history notable for a mother postcholecystectomy.
Gen: NAD
Abd: soft, tender in upper abdomen, negative Bartholomew's sign, ND, non-peritoneal, prior incisions well healed
Labs and imaging were reviewed.
Patient is a 44 yo F p/w upper abdominal discomfort likely secondary to gastroenteritis and side effects of GLP-1 inhibitor
Differential also includes symptomatic cholelithiasis given her larger stone, however, no evidence of secondary findings of acute cholecystitis (gallbladder wall distention, wall thickening, or edema). HIDA scan is negative ruling out cholecystitis
and need for urgent intervention on her gallbladder. That being said given the large nature of her stone as well as potential for biliary colic or cholecystitis in the future (especially if continues on GLP-1 inhibitor) would ultimately recommend
cholecystectomy as an outpatient.
We discussed a laparoscopic cholecystectomy with possible cholangiogram. The procedure itself, as well as the risks, benefits, and alternatives was discussed. Specifically, we discussed the risks of bleeding, infection, injury to surrounding
structures (bowel, bile ducts), CBD injury, need for open procedure. Typical postprocedural coverage including pain management, activity restrictions, and the 10 to 20% risks of fluctuations in GI function were discussed. All questions answered.
Consent signed.
-- No plans for cholecystectomy during this admission
-- Low-fat diet
-- Hold GLP-1, will need to change/transition DM management, can consider restarting 2 weeks post cholecystectomy
-- General Surgery office to contact patient and schedule for elective cholecystectomy as an outpatient
-- All questions answered
-- Please call with questions or concerns
Original Note:
Consultation
-
Date/Time Consultation Performed: 08/09/25 0830
Requesting Provider: Nuzhat
Performing Provider: Van Juárez
Medical History
-
Chief Complaint: Abdominal pain
History of Present Illness:
Ms Waite is a 44 yo female with a h/o bipolar, x2 and abdominoplasty who was recently diagnosed with diabetes and started on Mounjaro and Jardiance for management. Her Mounjaro dose was titrated up this past Tuesday (08/03) and she began
experiencing nausea, vomiting, upper abdominal pain with diarrhea. She notes symptoms are worse with eating. She presented through the ED for evaluation on 08/05 and was discharged to home for outpatient symptom management but returned given
persistent symptoms. Currently, discomfort is mild but she is tender to the mid to upper right quadrant. She denies fevers or chills. She has noticed dark urine but denies acholic stools. She denies episodes like this in the past.
Past Medical History
Past Medical History: NIDDM and Psychiatric (bipolar)
Past Surgical History: (x2) and Other (abdominoplasty )
Social History
Tobacco: Former Smoker
Alcohol: None
Living: With Family
Family History
Family History: Diabetes
Allergies / Home Medications
Allergy/AdvReac Type Severity Reaction Status Date / Time
No Known Allergies Allergy Unverified 08/05/25 17:32
�Medication �Instructions �Recorded �Confirmed �Type
cariprazine 6 mg capsule (Vraylar) 6 mg PO DAILY 08/07/25 08/07/25 History
empagliflozin 10 mg tablet 10 mg PO DAILY 08/07/25 08/07/25 History
(Jardiance)
lamotrigine 300 mg tablet,extended 300 mg PO DAILY 08/07/25 08/07/25 History
release 24 hr
sertraline 100 mg tablet 100 mg PO DAILY 08/07/25 08/07/25 History
tirzepatide 7.5 mg/0.5 mL 7.5 mg SC SA 08/07/25 08/07/25 History
subcutaneous pen injector
([facility])
blood sugar diagnostic (Accu-Chek ##200 08/08/25 Rx
Guide test strips)
blood-glucose meter (Accu-Chek #1 ea 08/08/25 Rx
Guide Glucose Meter)
lancets (Accu-Chek Softclix ##200 08/08/25 Rx
Lancets)
Review of Systems
-
History Source: Patient
All other systems: Negative unless noted
A 10 point review of systems was completed, and was negative except as per HPI.
Physical Exam
Vital Signs
Temp Pulse Resp BP Pulse Ox
98.5 F 85 18 121/82 99
08/09/25 07:00 08/09/25 07:00 08/09/25 07:00 08/09/25 07:00 08/09/25 07:00
08/08/25 08/09/25 08/10/25
06:59 06:59 06:59
Actual Weight 72.291 kg
Body Mass Index (BMI) 27.4
Lab Results
08/08/25 06:02
WBC 7.4 10^3/uL (4.8-10.8) 08/08/25 06:02
Hgb 13.2 g/dL (12.0-16.0) 08/08/25 06:02
Hct 38.6 % (37.0-47.0) 08/08/25 06:02
Plt Count 185 10^3/uL (130-400) 08/08/25 06:02
Abs Immat Gran (auto) 0.0 10^3/uL (0-0.05) 08/08/25 06:02
Neutrophils % 53.1 % (42.2-75.2) 08/08/25 06:02
Physical Exam
General: Well Developed and Well Nourished
HEENT: Moist Mucous Membranes
Respiratory: Non Labored Respirations
GI: Soft, Non Distended and Tender (right mid to upper quadrant)
Skin: Warm and Dry
Neuro: Awake, Alert and AO x 3
Assessment / Plan
-
Ms Waite is a 44 yo female with a h/o bipolar, x2 and abdominoplasty who was recently diagnosed with diabetes and started on Mounjaro and Jardiance for management. Her Mounjaro dose was titrated up this past Tuesday (08/03) and she began
experiencing nausea, vomiting, upper abdominal pain with diarrhea which has persisted. She notes symptoms are worse with eating but discomfort currently while NPO after MN with associated right sided tenderness. Mild leukocytosis present on
admission which has resolved. LFT's WNL. CT from 08/07 with possible gastroenteritis given fluid in large and small bowel. No acute gallbladder pathology present. US with large gallstone present as well as sludge but no evidence of edema, ?mild
thickening with negative bartholomew's. Afebrile. Stable vital signs.
Plan
NPO fro HIDA scan today
Hold GLP-1 Agonist
If HIDA positive, will plan lap regan this admission. If negative, plan lap regan on scheduled outpatient basis with GLP-1 agonist on hold
[2025-08-09 11:00] VITALS: BP 130/84
[2025-08-09] MEDS: ZOLOFT 100 MG PO (11:48)
[2025-08-09] MEDS: FARXIGA 10 MG PO (11:49)
[2025-08-09 12:08] LABS: ALT (SGPT) 19 U/L (0-35); AST (SGOT) 17 U/L (14-36); Albumin 4.0 g/dl (3.5-5.0); Alkaline Phosphatase 58 U/L (38-126); Blood Urea Nitrogen 4 mg/dl (7-17); Calcium 8.9 mg/dl (8.4-10.2); Carbon Dioxide 28 mmol/L (22-30); Chloride 103 mmol/L (98-107); Estimated Creatinine Clearance 101 ml/min; Glucose 73 mg/dl (70-99); Potassium 3.9 mmol/L (3.5-5.1); Sodium 138 mmol/L (135-145); Total Protein 6.2 g/dl (6.3-8.2); eGFR > 60.00
[2025-08-09 12:15] LABS: Glucose - Point of Care 71 mg/dl (70-99)
--- NOTE | 2025-08-09 12:23 | W.DS.TRANS ---
DC Summary - District Adviser
-
Discharge Instructions:
Discharge Diagnosis/Procedures Persistent nausea, emesis with low oral intake.
Increased anion gap metabolic acidosis.
Leukocytosis reactive
Cholelithiasis.
Diabetes
Bipolar disorder
Diet Low Fat,Diabetic, Carb Controlled
Instructions:
Stand-Alone Forms:
Changes to Home Medications: Yes
Discharge Medications:
DC Medications w/original date entered in [employer]
cariprazine 6 mg capsule (Vraylar) 6 mg PO DAILY Mental Health/Anxiety 08/07/25
empagliflozin 10 mg tablet (Jardiance) 10 mg PO DAILY Diabetes 08/07/25
lamotrigine 300 mg tablet,extended release 24 hr 300 mg PO DAILY Mental Health/Anxiety 08/07/25
sertraline 100 mg tablet 100 mg PO DAILY depression/anxiety 08/07/25
blood sugar diagnostic (Accu-Chek Guide test strips) ##200 08/08/25
blood-glucose meter (Accu-Chek Guide Glucose Meter) #1 ea 08/08/25
lancets (Accu-Chek Softclix Lancets) ##200 08/08/25
Home Medication Changes
Genevieve stopped
Pending Results: No
--- NOTE | 2025-08-09 13:15 | PTCARENOTE ---
pt denied need for analgesia, medicated with PRN Compazine for c/o nausea with good relief. independent in room, [facility], for discharge to home with her family
--- NOTE | 2025-08-09 13:53 | CM ---
MD entered order for discharge.
Family here to take pt home.
Declined VN needs.
PLAN Home no needs
== END 2025-08-09 14:03 | disposition home or self-care (01) | DRG 394 ==
LOC: 3 WEST ACU 13:52
PROVIDERS: ADMITTING PHYSICIAN Internal Medicine; EMERGENCY PHYSICIAN Emergency Medicine; FAMILY PHYSICIAN Family Medicine; OTHER PHYSICIAN Surgery
DX: K52.1 Toxic gastroenteritis and colitis (principal); E87.29 Other acidosis; K80.20 Calculus of gallbladder without cholecystitis without obstruction; E11.9 Type 2 diabetes mellitus without complications; E86.0 Dehydration; F31.9 Bipolar disorder, unspecified; T38.3X5A Adverse effect of insulin and oral hypoglycemic [antidiabetic] drugs, initial encounter; T43.8X5A Adverse effect of other psychotropic drugs, initial encounter; Z79.85 Long-term (current) use of injectable non-insulin antidiabetic drugs; Z79.84 Long term (current) use of oral hypoglycemic drugs; Z79.899 Other long term (current) drug therapy; Z87.891 Personal history of nicotine dependence
CPT/HCPCS: 74177; 76705; 78226; 80053; 82010; 82962; 83036; 83690; 84703; 85025; 93005; 96361; 96374; 96375; 96376; 99284; A9537; Q9967

== ENCOUNTER 2025-09-27 06:15 | Day surgery (SDC) | payer OTHER, SELFPAY ==
[2025-09-27] VITALS (8 sets, daily range): BP systolic 96–122; BP diastolic 60–85; BMI 29.2
[2025-09-27 10:53] LABS: Glucose - Point of Care 152 mg/dl (70-99)
[2025-09-27] MEDS: NORMOSOL-R/PLASMALYTE-A 1000 IV (10:54)
[2025-09-27] MEDS: TYLENOL 1000 MG PO (10:54)
[2025-09-27] MEDS: SUBLIMAZE 25 MCG IV ×2 (13:12→13:24)
[2025-09-27] MEDS: ZOFRAN 4 MG IV (13:27)
[2025-09-27 14:02] LABS: Glucose - Point of Care 180 mg/dl (70-99)
[2025-09-27] MEDS: ROXICODONE 5 MG PO (14:37)
== END 2025-09-27 15:05 | disposition home or self-care (01) ==
LOC: SDS 06:15
PROVIDERS: ATTENDING PHYSICIAN Surgery
DX: K80.10 Calculus of gallbladder with chronic cholecystitis without obstruction (principal)
CPT/HCPCS: 47563; 74300; 76000; 82962; 88304; A4300